=== PATIENT | male | born 1995 | race Caucasian/White ===

== ENCOUNTER 2019-03-13 15:12 | Emergency (ER) | payer BC ==
[2019-03-13 15:34] VITALS: BP 148/79
[2019-03-13] MEDS ORDERED: Albuterol/Ipratropium NEB.SOL* Albuterol 2.5 MG/Ipratropium 0.5 MG 3 ML INH ONE (15:41)
--- NOTE | 2019-03-13 15:41 | UC ---
Respiratory Complaint HPI - HPI Summary HPI Summary: 23-year-old male who has had a cough and some cold symptoms since Saturday. He denies any shortness of breath however he states he has had some wheezing intermittently over the past few days. He denies any history of asthma however has had hayfever in his lifetime and seasonal allergies. He is a nonsmoker. - History of Current Complaint Chief Complaint: UCGeneralIllness Stated Complaint: COUGH Time Seen by Provider: 03/13/19 15:31 Hx Obtained From: Patient Onset/Duration: Gradual Onset Severity Initially: Mild Severity Currently: Mild Pain Intensity: 0 Character: Cough: Nonproductive Aggravating Factors: Allergens Alleviating Factors: Nothing Associated Signs And Symptoms: Positive: Wheezing, URI, Nasal Congestion. Negative: Fever - Allergies/Home Medications Allergies/Adverse Reactions: Allergies Allergy/AdvReac Type Severity Reaction Status Date / Time hay fever Allergy Runny Nose Uncoded 03/13/19 15:34 Home Medications: Home Medications Albuterol HFA INHALER* [Ventolin HFA Inhaler*] 1 puff INH ONCE 03/13/19 [ History Confirmed 03/13/19] Loratadine 1 tab PO ONCE 03/13/19 [History Confirmed 03/13/19] diphenhydrAMINE HCl [Benadryl Allergy] 1 tab PO ONCE 03/13/19 [History Confirmed 03/13/19] PMH/Surg Hx/FS Hx/Imm Hx Previously Healthy: Yes - Surgical History Surgical History: Yes Surgery Procedure, Year, and Place: t/a ~1997. partial iliectomy 2017. appendectomy 2017 - Family History Known Family History: Positive: Non-Contributory - Social History Alcohol Use: Occasionally Substance Use Type: None Smoking Status (MU): Never Smoked Tobacco - Immunization History Most Recent Tetanus Shot: UTD Review of Systems All Other Systems Reviewed And Are Negative: Yes ENT: Positive: Nasal Discharge, Sinus Congestion Respiratory: Positive: Cough - Harsh nonproductive cough. Is Patient Immunocompromised?: No Physical Exam Triage Information Reviewed: Yes Appearance: Well-Appearing, No Pain Distress, Well-Nourished Vital Signs: Initial Vital Signs Temp 98.3 F 03/13/19 15:31 Pulse 66 03/13/19 15:31 Resp 18 03/13/19 15:31 BP 148/79 03/13/19 15:31 Pulse Ox 99 03/13/19 15:31 Vital Signs Reviewed: Yes Eyes: Positive: Conjunctiva Clear ENT: Positive: Hearing grossly normal, Pharynx normal, Nasal congestion, TMs normal, Uvula midline Neck: Positive: Supple, Nontender, No Lymphadenopathy Respiratory: Positive: Lungs clear, Normal breath sounds, No respiratory distress, No accessory muscle use, Decreased breath sounds - Mildly decreased breath sounds in the right lower lobe posteriorly., Other: Cardiovascular: Positive: RRR, No Murmur, Pulses Normal, Brisk Capillary Refill Musculoskeletal Exam: Normal Neurological Exam: Normal Psychological Exam: Normal Skin Exam: Normal Respiratory Course/Dx - Course Course Of Treatment: Chest x-ray:REPORT: Clear lungs and pleural spaces. Negative for pneumothorax. The heart, pulmonary vasculature, and mediastinal contours are unremarkable. Unremarkable osseous structures and soft tissue contours. IMPRESSION: #. No evidence for acute intrathoracic disease. DuoNeb treatment: Patient had increased aeration and less coughing following the DuoNeb treatment. The x-ray was read as negative however I am going to treat the patient with prednisone for 5 days and a Z-Tereso. He's to follow-up with his primary care provider in 3 or 4 days if no improvement. - Differential Dx/Diagnosis Provider Diagnosis: Bronchitis Discharge - Sign-Out/Discharge Documenting (check all that apply): Patient Departure All imaging exams completed and their final reports reviewed: Yes - Discharge Plan Condition: Fair Disposition: HOME Prescriptions: Azithromyxin TERESO (NF) [Z-Tereso (Zithromax) 250 mg tabs #6] 2 tab PO .TODAY, THEN 1 DAILY #6 tab predniSONE [Prednisone 20 MG TAB] 40 mg PO DAILY 5 Days #10 tablet Patient Education Materials: Acute Bronchitis (ED) Referrals: Benitez Thomas MD [Primary Care Provider] - Additional Instructions: Increase fluids, follow-up with your primary care provider if no improvement in 3 or 4 days. Take prednisone with food. - Billing Disposition and Condition Condition: FAIR Disposition: Home - Attestation Statements Provider Attestation: Per institutional requirements, I have reviewed the chart, however, I was not consulted specifically or made aware of this patient by the midlevel provider. I did not personally evaluate, interact with , or disposition this patient.
== END 2019-03-13 16:37 | disposition home or self-care (01) ==
LOC: UCCORT 15:12
DX: J40 Bronchitis, not specified as acute or chronic (principal)
CPT/HCPCS: 71046; 99202; A9270-GY; G0463

== ENCOUNTER 2019-03-19 14:15 | Emergency (ER) | payer BC ==
[2019-03-19 14:41] VITALS: BP 148/80
--- NOTE | 2019-03-19 14:55 | UC ---
Respiratory Complaint HPI - HPI Summary HPI Summary: 23 yo male seen here 03/13 and treated for bronchitis non productive cough persists no fever no URI symptoms no CP or sob no reflux no wheezing - History of Current Complaint Chief Complaint: UCRespiratory Stated Complaint: COUGH Time Seen by Provider: 03/19/19 14:40 Hx Obtained From: Patient Onset/Duration: Gradual Onset, Lasting Days Timing: Constant Severity Initially: Mild Severity Currently: Moderate Pain Intensity: 0 Pain Scale Used: 0-10 Numeric Character: Cough: Nonproductive Aggravating Factors: Nothing Alleviating Factors: Nothing Associated Signs And Symptoms: Negative: Dyspnea, Fever, Chills, Pleuritic Chest Pain, Wheezing, Hemoptysis, Dizziness, Calf Pain, Calf Swelling, Edema, URI, Nasal Congestion, Hoarseness, Sinus Discomfort Related History: Seasonal Allergies - Allergies/Home Medications Allergies/Adverse Reactions: Allergies Allergy/AdvReac Type Severity Reaction Status Date / Time hay fever Allergy Runny Nose Uncoded 03/13/19 15:34 PMH/Surg Hx/FS Hx/Imm Hx Previously Healthy: Yes Other GI/ History: crohns - Surgical History Surgical History: Yes Surgery Procedure, Year, and Place: t/a ~1997. partial iliectomy 2017. appendectomy 2017 - Family History Known Family History: Positive: Hypertension, Non-Contributory - Social History Alcohol Use: Occasionally Substance Use Type: None Smoking Status (MU): Never Smoked Tobacco - Immunization History Most Recent Tetanus Shot: UTD Review of Systems All Other Systems Reviewed And Are Negative: Yes Constitutional: Positive: Fatigue Skin: Positive: Negative Eyes: Positive: Negative ENT: Positive: Negative Respiratory: Positive: Cough Cardiovascular: Positive: Negative Gastrointestinal: Positive: Negative Genitourinary: Positive: Negative Motor: Positive: Negative Neurovascular: Positive: Negative Musculoskeletal: Positive: Negative Neurological: Positive: Negative Psychological: Positive: Negative Physical Exam Triage Information Reviewed: Yes Appearance: Well-Appearing, No Pain Distress, Well-Nourished Vital Signs: Initial Vital Signs Temp 99.2 F 03/19/19 14:38 Pulse 74 03/19/19 14:38 Resp 18 03/19/19 14:38 BP 148/80 03/19/19 14:38 Pulse Ox 100 03/19/19 14:38 Vital Signs Reviewed: Yes Eyes: Positive: Conjunctiva Clear ENT: Positive: Hearing grossly normal, Nasal congestion, Nasal drainage, Uvula midline. Negative: Tonsillar swelling, Tonsillar exudate, Trismus, Muffled voice, Hoarse voice, Dental tenderness, Sinus tenderness Dental Exam: Normal Neck: Positive: Supple, Nontender, No Lymphadenopathy Respiratory: Positive: Lungs clear, Normal breath sounds, No respiratory distress, No accessory muscle use. Negative: Chest non-tender Cardiovascular: Positive: RRR, No Murmur Musculoskeletal: Positive: ROM Intact Neurological: Positive: Alert Psychological Exam: Normal Skin Exam: Normal Respiratory Course/Dx - Differential Dx/Diagnosis Provider Diagnosis: Post-viral cough syndrome, Elevated BP without diagnosis of hypertension Discharge - Sign-Out/Discharge Documenting (check all that apply): Patient Departure All imaging exams completed and their final reports reviewed: No Studies - Discharge Plan Condition: Stable Disposition: HOME Prescriptions: Benzonatate CAP* [Tessalon CAP*] 100 - 200 mg PO TID PRN #[id number] cap PRN Reason: Cough Patient Education Materials: Acute Cough (ED) Referrals: Benitez Thomas MD [Primary Care Provider] - 1 Week (BP needs recheckin in 1 -12 weeks. A little high here) Additional Instructions: I think you have a post infectious cough recheck for fever/wheezing/new or worsening symptoms robitussin or mucinex - Billing Disposition and Condition Condition: STABLE Disposition: Home
== END 2019-03-19 15:07 | disposition home or self-care (01) ==
LOC: UCCORT 14:15
DX: R05 Cough (principal); R03.0 Elevated blood-pressure reading, without diagnosis of hypertension
CPT/HCPCS: 99212; G0463

== ENCOUNTER 2019-07-06 14:51 | Emergency (ER) | payer BC ==
--- NOTE | 2019-07-06 17:49 | UC ---
Hand/Wrist HPI - HPI Summary HPI Summary: 23 yo male presents with LEFT hand pain. He tells me that 3 days ago he woke up and noticed some pain between his thumb and index finger on his left hand near the base of his hand. Since that time has been increasingly painful and worse with movement - today feels improved. Has been taking tylenol with mild relief. He is right hand dominant. Denies fever, injury, numbness, or tingling. - History Of Current Complaint Stated Complaint: HAND INJURY Time Seen by Provider: 07/06/19 17:49 Hx Obtained From: Patient Onset/Duration: Sudden Onset Severity Initially: Mild Severity Currently: Mild Pain Intensity: 3 Pain Scale Used: 0-10 Numeric - Allergies/Home Medications Allergies/Adverse Reactions: Allergies Allergy/AdvReac Type Severity Reaction Status Date / Time hay fever Allergy Runny Nose Uncoded 07/06/19 17:53 Home Medications: Home Medications Acetaminophen [Tylenol Extra Strength] 1,500 mg PO DAILY 07/06/19 [History Confirmed 07/06/19] PMH/Surg Hx/FS Hx/Imm Hx - Additional Past Medical History Additional PMH: Crohn's disease - Surgical History Surgical History: Yes Surgery Procedure, Year, and Place: t/a ~1997. partial iliectomy 2017. appendectomy 2017 - Family History Known Family History: Positive: Hypertension, Non-Contributory - Social History Lives: With Family Alcohol Use: Occasionally Substance Use Type: None Smoking Status (MU): Never Smoked Tobacco - Immunization History Most Recent Tetanus Shot: UTD Review of Systems All Other Systems Reviewed And Are Negative: No Constitutional: Positive: Negative Skin: Positive: Negative Respiratory: Positive: Negative Cardiovascular: Positive: Negative Neurovascular: Positive: Negative Musculoskeletal: Positive: Other: - Left hand pain Neurological: Positive: Negative Psychological: Positive: Negative Physical Exam - Summary Physical Exam Summary: GENERAL: NAD. WDWN. No pain distress. SKIN: No rashes, sores, lesions, or open wounds. CHEST: No accessory muscle use. Breathing comfortably and in no distress. CV: Pulses intact radial and ulnar. Cap refill <2seconds MSK: LEFT HAND: at the base of the MCs between the thumb and index finger there is mild TTP and pain with opposition. Strength 5/5 including lead welder strength. No edema or obvious bony deformities. No snuffbox tenderness. NEURO: Alert. Sensations intact hand and all fingers. PSYCH: Age appropriate behavior. Triage Information Reviewed: Yes Vital Signs: Vital Signs: Temp Pulse Resp BP Pulse Ox 99.2 F 79 16 153/74 100 07/06/19 17:49 07/06/19 17:49 07/06/19 17:49 07/06/19 17:49 07/06/19 17:49 Vital Signs Reviewed: Yes Diagnostics - Radiology XR hand Radiology Interpretation Completed By: ED Physician Summary of Radiographic Findings: No fx Hand/Wrist Course/Dx - Course Course Of Treatment: Suspect sprain/tendinitis of adductor pollicis. Pt was provided with a thumb spica splint and advised to rest and ice the area. If symptoms persist f/u with Orthopedics - Differential Dx/Diagnosis Provider Diagnosis: Hand sprain Discharge ED - Sign-Out/Discharge Documenting (check all that apply): Patient Departure All imaging exams completed and their final reports reviewed: No - Discharge Plan Condition: Stable Disposition: HOME Patient Education Materials: Tendinitis (ED) Forms: *Work Release Referrals: Benitez Thomas MD [Primary Care Provider] - Eliazar Winter MD [Medical Doctor] - If Needed Additional Instructions: If you develop a fever, shortness of breath, chest pain, new or worsening symptoms - please call your PCP or go to the ED immediately. Your blood pressure was high at todays visit. Please see your primary provider within 4 weeks for recheck and re-evaluation. 1) Rest, Ice, and elevate your hand to reduce pain and swelling 2) Use the thumb brace as needed for comfort 3) If your symptoms do not continue to improve within 5-7 days, please call Orthopedics at the number below to schedule an appointment for a recheck - Billing Disposition and Condition Condition: STABLE Disposition: Home - Attestation Statements Provider Attestation: Chart reviewed. Pt not seen by me. I was available for consult. DORIS
[2019-07-06 17:53] VITALS: BP 153/74
--- NOTE | 2019-07-07 08:18 | UC ---
- Progress Note Progress Note: xray report left hand : IMPRESSION: No fracture of the left hand is noted. Course/Dx - Diagnoses Provider Diagnoses: Hand sprain Discharge ED - Sign-Out/Discharge Documenting (check all that apply): Patient Departure All imaging exams completed and their final reports reviewed: Yes - Discharge Plan Condition: Stable Disposition: HOME Patient Education Materials: Tendinitis (ED) Forms: *Work Release Referrals: Eliazar Winter MD [Medical Doctor] - If Needed Benitez Thomas MD [Primary Care Provider] - Additional Instructions: If you develop a fever, shortness of breath, chest pain, new or worsening symptoms - please call your PCP or go to the ED immediately. Your blood pressure was high at todays visit. Please see your primary provider within 4 weeks for recheck and re-evaluation. 1) Rest, Ice, and elevate your hand to reduce pain and swelling 2) Use the thumb brace as needed for comfort 3) If your symptoms do not continue to improve within 5-7 days, please call Orthopedics at the number below to schedule an appointment for a recheck - Billing Disposition and Condition Condition: STABLE Disposition: Home
== END 2019-07-06 18:37 | disposition home or self-care (01) ==
LOC: UCCORT 14:51
DX: S63.8X2A Sprain of other part of left wrist and hand, initial encounter (principal); X58.XXXA Exposure to other specified factors, initial encounter; Y92.9 Unspecified place or not applicable; Z91.09 Other allergy status, other than to drugs and biological substances
CPT/HCPCS: 99212; G0463